=== PATIENT | female | born 1990 | race Caucasian/White ===

== ENCOUNTER 2016-11-14 11:02 | Outpatient (CLI) | payer MEDICAID ==
[2016-11-14 11:34] LABS: AMNISURE (ROM) POSITIVE (NEGATIVE)
[2016-11-14 11:34] LABS: APPEARANCE,URINE SLIGHTLY-CLOUDY; BILIRUBIN,URINE NEGATIVE (NEGATIVE); GLUCOSE, URINE NEGATIVE (NEGATIVE); KETONES,URINE NEGATIVE (NEGATIVE); LEUKOCYTE ESTERASE,URINE NEGATIVE (NEGATIVE); NITRITE,URINE NEGATIVE (NEGATIVE); PROTEIN,URINE NEGATIVE (NEGATIVE); URINE SPECIFIC GRAVITY 1.019; UROBILINOGEN,URINE NEGATIVE mg/dL (<2.0)
[2016-11-14 11:51] LABS: URINE BARBITURATES SCREEN NEGATIVE; URINE METHADONE SCREEN NEGATIVE; URINE OPIATES LOW NEGATIVE; URINE PHENCYCLIDINE SCREEN NEGATIVE
[2016-11-14] MEDS ORDERED: AMPICILLIN SOD INJ 1 GM VIAL ONE (11:56)
[2016-11-14] MEDS ORDERED: AZITHROMYCIN INJ 500 MG VIAL IV ONE ×2 (11:56→12:20)
[2016-11-14] MEDS ORDERED: BETAMET ACET/BETAMET NA INJ 6 MG/1 ML ONE ×2 (11:57→12:01)
--- NOTE | 2016-11-14 12:00 | L&D Flow Sheet ---
LD Flowsheet Datetime Report Generated by CPN: 11/14/2016 12:00 Datetime: 11/14/2016 11:37 Vital Signs NBP Sys/Katie/Mean (mmHg): 83 (QS system process) : 57 (QS system process) : 63 (QS system process)
[2016-11-14] MEDS ORDERED: AMPICILLIN SOD INJ 1 GM VIAL IV ONE (12:20)
--- NOTE | 2016-11-14 12:30 | PDOC TRANSFER SUMMARY ---
General Admission Date/PCP: KARAN BURLESON MD Admission Date: 11/14/16 Transfer Date: 11/14/16 Accepting Facility: [facility] Accepting Physician: Dr Delgado Resuscitation Status: Full Code - Transfer Diagnosis (1) Twin gestation in third trimester Is this a current diagnosis for this admission?: Yes (2) premature rupture of membranes Is this a current diagnosis for this admission?: Yes - Transfer Medications Home Medications: Glyburide [Diabeta 2.5 mg Tablet] 2.5 tab-cap PO BID 11/14/16 Levothyroxine Sodium [Synthroid 0.1 mg Tablet] 0.2 mg PO DAILY 11/14/16 - Allergies Allergies/Adverse Reactions: lamotrigine [From Lamictal] Allergy (Verified 08/26/15 14:42) Generalized rash abilify Allergy (Uncoded 11/14/16 12:15) - Diet/Activity Discharge Diet: As Tolerated, Regular Discharge Activity: Bedrest Hospital Course Hospital Course: 26yo A1 edc 01/25/17 ega 29+5 by edc and 8w sono presents c/o ROM 0900 this am. She reports mild cramping but no regular tightening. She reports no vaginal bleeding and has good movement. She had positive amnisure test on arrival. Physical Exam General appearance: PRESENT: no acute distress, cooperative Respiratory exam: PRESENT: clear to auscultation fredy Cardiovascular exam: PRESENT: RRR GI/Abdominal exam: PRESENT: normal bowel sounds, soft. ABSENT: distended, guarding, mass, organolmegaly, rebound, tenderness Extremities exam: PRESENT: full ROM. ABSENT: calf tenderness - FHT 130/140 with age appropriate tracing. toco irreg, clubbing, pedal edema Additional comments: fht 130/140 with age appropriate tracings. toco irreg. cx closed and long by sterile speculum exam Results Laboratory Results: 11/14/16 11:11 Urine Color YELLOW Urine Appearance SLIGHTLY-CLOUDY Urine pH 6.0 Ur Specific [place] 1.019 Urine Protein NEGATIVE Urine Glucose (UA) NEGATIVE Urine Ketones NEGATIVE Urine Blood NEGATIVE Urine Nitrite NEGATIVE Ur Leukocyte Esterase NEGATIVE Urine WBC (Auto) 1 Urine RBC (Auto) 1 Plan Discharge Plan: Transfer to [facility]. Amp and zithromax given. betamethasone given. Magnesium sulfate for neuroprotection given Time Spent: Less than 30 Minutes
[2016-11-14] MEDS ORDERED: MAGNESIUM SULFATE 4 GM/100 ML RTUPB IV ONE ×2 (12:39→13:00)
[2016-11-14] MEDS ORDERED: MAGNESIUM SULFATE 500 ML IV PRN (12:40)
[2016-11-14] MEDS ORDERED: BETAMET ACET/BETAMET NA INJ 6 MG/1 ML IM ONE (13:00)
--- NOTE | 2016-11-14 14:00 | L&D Flow Sheet ---
LD Flowsheet Datetime Report Generated by CPN: 11/14/2016 14:00 Datetime: 11/14/2016 13:23 Patient Care Comments: Monitors removed. Transfer team assuming care. (Leticia Marhefka, RN) Datetime: 11/14/2016 13:16 Pulse: 108 (QS system process) SpO2 (%): 99 (QS system process) LaborFlag: OB Triage (QS system process) Datetime: 11/14/2016 13:13 Magnesium/Antihypertensives: Magnesium Sulfate IV (Gm/hr) @ 2 (Leticia Murdock, RN) Datetime: 11/14/2016 13:11 Pulse: 105 (QS system process) SpO2 (%): 100 (QS system process) LaborFlag: OB Triage (QS system process) Datetime: 11/14/2016 13:09 NBP Sys/Katie/Mean (mmHg): 108 (Leticia Murdock RN) : 64 (Leticia Murdock RN) Pulse: 84 (Leticia Murdock RN) Respirations: 16 (Leticia Murdock, RN) Temperature (F): 98.6 (Leticia Murdock, RN) Temperature (C): 37.0 (QS system process) LaborFlag: OB Triage (QS system process) Datetime: 11/14/2016 13:06 Pulse: 117 (QS system process) SpO2 (%): 99 (QS system process) LaborFlag: OB Triage (QS system process) Datetime: 11/14/2016 13:01 Pulse: 99 (QS system process) SpO2 (%): 100 (QS system process) LaborFlag: OB Triage (QS system process) Datetime: 11/14/2016 13:00 I/O Interventions: [place] Cath Inserted (Leticia Murdock RN) Datetime: 11/14/2016 12:56 Pulse: 108 (QS system process) SpO2 (%): 99 (QS system process) LaborFlag: OB Triage (QS system process) Datetime: 11/14/2016 12:55 Monitor Mode: External; Palpation (Letty Felton RN) Frequency (min): irregular (Letty Felton, SAUL) Quality: Mild (Letty Felton RN) Duration Criteria: Less than Two 120 Second Contractions (Letty Felton RN) Pattern: Normal: <= 5 Contractions in 10 Minutes (Letty Felton RN) Resting Tone (Palpate): Relaxed (Letty Felton RN) Monitor Mode: External US (Letty Felton RN) FHR Baseline Rate : 145 (Letty Felton RN) Variability: Moderate 6-25 bpm (Letty Baidy, RN) Accelerations: 10X10 (Letty Felton, RN) Decelerations: None (Letty Felton, RN) Monitor Mode: External US (Letty Felton RN) FHR Baseline Rate : 140 (Letty Felton RN) Variability: Moderate 6-25 bpm (Letty Felton, RN) Accelerations: 10X10 (Letty Felton, RN) Decelerations: None (Letty Felton, RN) Datetime: 11/14/2016 12:51 Pulse: 115 (QS system process) SpO2 (%): 100 (QS system process) LaborFlag: OB Triage (QS system process) Datetime: 11/14/2016 12:50 Magnesium/Antihypertensives: Magnesium Sulfate IV Loading (Gm) @ 4g (Nuris Emerson RN) Patient Care Comments: LR at 75ml/hr (Nuris Emerson RN) Datetime: 11/14/2016 12:46 Pulse: 114 (QS system process) SpO2 (%): 100 (QS system process) LaborFlag: OB Triage (QS system process) Datetime: 11/14/2016 12:41 Pulse: 108 (QS system process) SpO2 (%): 99 (QS system process) LaborFlag: OB Triage (QS system process) Datetime: 11/14/2016 12:36 Pulse: 103 (QS system process) SpO2 (%): 100 (QS system process) LaborFlag: OB Triage (QS system process) Datetime: 11/14/2016 12:29 Pulse: 78 (Leticia Mariselaka, RN) Respirations: 17 (Leticia Murdock, RN) LaborFlag: OB Triage (QS system process) Datetime: 11/14/2016 12:25 Monitor Mode: External; Palpation (Letty Felton RN) Frequency (min): irregular (Letty Felton RN) Quality: Mild (Letty Felton RN) Duration Criteria: Less than Two 120 Second Contractions (Letty Felton RN) Pattern: Normal: <= 5 Contractions in 10 Minutes (Letty Felton RN) Resting Tone (Palpate): Relaxed (Letty Felton RN) Monitor Mode: External US (Letty Felton, RN) FHR Baseline Rate : 145 (Letty Felton, RN) Variability: Moderate 6-25 bpm (Letty Felton, RN) Accelerations: 10X10 (Letty Felton, RN) Decelerations: None (Letty Felton, RN) Monitor Mode: External US (Letty Felton, RN) FHR Baseline Rate : 140 (Letty Felton, RN) Variability: Moderate 6-25 bpm (Letty Felton, RN) Accelerations: 10X10 (Letty Felton, RN) Decelerations: None (Letty Baidy, RN) Antibiotics: Ampicillin IV 1 Gm (Leticia Murdock, RN) Datetime: 11/14/2016 12:13 Bedside Blood Glucose: 80 (QS system process) LaborFlag: OB Triage (QS system process) Datetime: 11/14/2016 12:12 NBP Sys/Katie/Mean (mmHg): 110 (Leticia Murdock RN) : 88 (Leticia Murdock RN) Vital Sign Comments: manual blood pressure (Leticia Murdock RN) LaborFlag: OB Triage (QS system process) Datetime: 11/14/2016 12:04 IV/Blood Work: IV Started; IV Bolus Started (Leticia Murdock RN)
== END 2016-11-14 13:30 | disposition short-term general hospital (02) ==
LOC: LC 11:02
PROVIDERS: ATTEND Obstetrics & Gynecology
PROC: 4A1HXCZ Monitoring of Products of Conception, Cardiac Rate, External Approach (ICD-10-PCS; principal; 2016-11-14)
DX: O42.913 Preterm premature rupture of membranes, unspecified as to length of time between rupture and onset of labor, third trimester (principal); O30.033 Twin pregnancy, monochorionic/diamniotic, third trimester; Z3A.29 29 weeks gestation of pregnancy; Z88.8 Allergy status to other drugs, medicaments and biological substances
CPT/HCPCS: 59899; 94760; 84112; 82962; 81001; 80307; J3475; J0290; J0702; J0456

== ENCOUNTER → 2017-06-07 | Outpatient (CLI) | payer MEDICAID ==
--- NOTE | 2017-06-07 15:16 | RADIOLOGY REPORT (SQ) ---
EXAM DESCRIPTION: U/S OB 14+ TRNABD 1GES W/O DOP COMPLETED DATE/TIME: 06/07/2017 2:33 pm REASON FOR STUDY: ENCOUNTER FOR SUPERVISION OF OTHER NORMAL , FIRST TRIMESTER Z34.81 ENCOU NTER FOR SUPRVSN OF NORMAL , FIRST TRIM COMPARISON: None TECHNIQUE: Static and Dynamic grayscale imaging performed of gravid uterus using transabdominal appr oach. Additional selected color Doppler and spectral images recorded. All stored on PACS. LIMITATIONS: None. FINDINGS: EGA: 14 weeks 1 day. ORLIN: 12/05/2017 EFW: Not calculated. Grams PERCENTILE: Not applicable. CAROL: Adequate amount. PLACENTA: Posterior GRADE: I PRESENTATION: Transverse. ANATOMY: HEART RATE: 158 beats per minute. FOUR CHAMBER HEART: Not visualized THREE VESSEL CORD: Not visualized CORD INSERTION: Not visualized KIDNEYS AND BLADDER: Not visualized STOMACH: Visualized. Appears normal. SPINE: Not visualized BRAIN AND LATERAL VENTRICLES: Not visualized OTHER: Upper and lower extremities are unremarkable. MATERNAL ADNEXA: Maternal ovaries not visualized. CERVICAL LENGTH: 2.4 cm Closed. OTHER: No other significant finding. IMPRESSION: A limited examination shows a live intrauterine gestation of 14 weeks 1 day with estimat ed date of delivery of 12/05/2017. Trimester of : Second trimester - 13 weeks 1 day to 27 weeks 6 days. TECHNICAL DOCUMENTATION: JOB ID: [id number] [employer]- All Rights Reserved
== END ==
LOC: RAD 13:35
PROVIDERS: ATTEND Nurse Practitioner Women's Health
DX: Z34.81 Encounter for supervision of other normal pregnancy, first trimester (principal)
CPT/HCPCS: 76805

== ENCOUNTER 2017-11-30 05:02 | Inpatient (IN) | payer MEDICAID ==
[2017-11-29 12:27] LABS: ABSOLUTE EOSINOPHILS # (AUTO) 0.1 10^3/uL (0.0-0.6); ABSOLUTE LYMPHOCYTES (AUTO) 2.3 10^3/uL (0.5-4.7); ABSOLUTE MONOCYTES (AUTO) 0.5 10^3/uL (0.1-1.4); BASOPHILS % (AUTO) 0.3 % (0-2); EOSINOPHILS % (AUTO) 0.8 % (0-6); HEMATOCRIT 30.4 % (36.0-47.0); HEMOGLOBIN 9.9 g/dL (12.0-15.5); LYMPHOCYTES % (AUTO) 17.8 % (13-45); MEAN CORPUSCULAR HEMOGLOBIN 27.3 pg (27.0-33.4); MEAN CORPUSCULAR HGB CONC 32.5 g/dL (32.0-36.0); MEAN CORPUSCULAR VOLUME 84 fl (80-97); MONOCYTES % (AUTO) 3.9 % (3-13); PLATELET COUNT 146 10^3/uL (150-450); RED BLOOD COUNT 3.62 10^6/uL (3.72-5.28); RED CELL DISTRIBUTION WIDTH 16.9 % (11.5-14.0); SEGMENTED NEUTROPHILS % (AUTO) 77.2 % (42-78); TOTAL CELLS COUNTED % (AUTO) 100 %; WHITE BLOOD COUNT 12.9 10^3/uL (4.0-10.5)
[2017-11-29 12:39] LABS: APPEARANCE,URINE SLIGHTLY-CLOUDY; BILIRUBIN,URINE NEGATIVE (NEGATIVE); COLOR,URINE YELLOW; GLUCOSE, URINE NEGATIVE (NEGATIVE); KETONES,URINE NEGATIVE (NEGATIVE); LEUKOCYTE ESTERASE,URINE TRACE (NEGATIVE); NITRITE,URINE NEGATIVE (NEGATIVE); PROTEIN,URINE NEGATIVE (NEGATIVE); UROBILINOGEN,URINE NEGATIVE mg/dL (<2.0)
[2017-11-29 12:50] LABS: URINE AMPHETAMINES SCREEN NEGATIVE; URINE BARBITURATES SCREEN NEGATIVE; URINE BENZODIAZEPINES SCREEN NEGATIVE; URINE COCAINE SCREEN NEGATIVE; URINE METHADONE SCREEN NEGATIVE; URINE PHENCYCLIDINE SCREEN NEGATIVE
[2017-11-29 14:12] LABS: URINE MARIJUANA (THC) SCREEN UNCONFIRMED POSITIVE
[~2017-11-30 05:02] MED LIST: AZITHROMYCIN 500 MG in DEXTROSE 5%-WATER 250 ML IV PRN; CEFAZOLIN 1 GM/D5W RTU 1 GM/50 ML RTUPB IV PRN; LACTATED RINGERS 1000 ML IV PRN; LIDOCAINE 0.5% INJ-PF (5 MG/ML) 50 ML SDV SUBCUT PRN; RINGERS SOLUTION,LACTATED 1,000 ML IV PRN
[2017-11-30] MEDS ORDERED: MIDAZOLAM 2 MG/2 ML INJ ONE (07:32)
[2017-11-30] MEDS ORDERED: EPHEDRINE SULFATE INJ 50 MG/1 ML AMPULE ONE (07:32)
[2017-11-30] MEDS ORDERED: ACETAMINOPHEN 100 ML IV ONE (07:33)
[2017-11-30] MEDS ORDERED: OXYTOCIN/NORMAL SALINE 20 UNIT/1,000 ML RTUINJ ONE ×2 (07:33→09:15)
[2017-11-30] MEDS ORDERED: MEPERIDINE HCL/PF INJ 25 MG/1 ML DISP.SYRIN IV PRN ×2 (08:03→09:15)
[2017-11-30] MEDS ORDERED: FENTANYL CITRATE INJ/PF 100 MCG/2 ML AMPUL IV PRN ×6 (08:03→09:15)
[2017-11-30] MEDS ORDERED: PROMETHAZINE HCL INJ 25 MG/1 ML VIAL IV PRN ×4 (08:03→09:15)
[2017-11-30] MEDS ORDERED: OXYCODONE-ACETAMINOPHEN 5-325 MG TABLET PO PRN ×5 (08:03→10:00)
[2017-11-30] MEDS ORDERED: DIPHENHYDRAMINE HCL 50 MG/ML VIAL IV PRN ×2 (08:03→09:15)
[2017-11-30] MEDS ORDERED: HYDROMORPHONE HCL INJ/PF 2 MG/ML AMPULE ONE (09:35)
--- NOTE | 2017-11-30 09:35 | OPERATIVE REPORT E ---
Operative Report NAME: ISRAEL DAILEY : 1990 AGE: 27Y DATE OF SURGERY: 11/30/2017 ROOM: 212 PREOPERATIVE DIAGNOSES: 1. Intrauterine at term. 2. Prior section. 3. Desire for sterilization. POSTOPERATIVE DIAGNOSES: 1. Intrauterine at term. 2. Prior section. 3. Desire for sterilization. OPERATION: Repeat low transverse , delivery of a viable male, Apgars of 9 and 9, 6 pounds 12 ounces. The other is a bilateral tubal occlusion using Filshie clips. SURGEON: Sarabjit HURST M.D. ESTIMATED BLOOD LOSS: Less than 600 mL. ANESTHESIA: Spinal. PROCEDURE: The patient was placed in a supine position and rolled on the right side, prepped, draped, sterile fashion. A Pfannenstiel incision was made through the existing *------* scar. The incision extended through the subcutaneous tissue and fascia with sharp dissection. Fascia was sharply divided. The rectus muscles were sharply divided. The parietal peritoneum was entered with sharp dissection. Uterus nicked in the midline and extended bilaterally. The was then delivered through the uteroabdominal incision. Nose and mouth suctioned with a bulb syringe. Cord was clamped and the infant was passed from the table. Placenta was manually extracted, and the uterus closed in 2 layers using 0 Vicryl, the first with a running stitch and the second with a Lembert stitch imbricating the first layer. There was bleeding noted in several areas of the uterine incision, and these were controlled with [id number] sutures of 0 Vicryl. The right fallopian tube was then occluded in the proximal portion using Filshie clips. The *------* prior to and after application. The procedure was repeated on the left, and the fascia was then closed with 0 Vicryl, and skin was closed with running subcutaneous 3-0 Vicryl. The patient's urine was clear throughout the procedure. She was taken to recovery room in good condition. The went to the nursery in good condition. DICTATING PHYSICIAN: Sarabjit HURST M.D. [id number] PHY#: [id number] ID: [id number] JOB#: [id number] ACCT: [id number] cc:Sarabjit HURST M.D. >
[2017-11-30] MEDS ORDERED: OXYTOCIN/NORMAL SALINE 20 UNIT/1,000 ML RTUINJ INJ PRN (09:40)
[2017-11-30] MEDS ORDERED: DEXTROSE 5%-LACTATED RINGERS 1,000 ML IV PRN (09:44)
[2017-11-30] MEDS ORDERED: ACETAMINOPHEN 325 MG TABLET PO PRN (10:00)
[2017-11-30] MEDS ORDERED: MEASLES,MUMPS&RUBELLA VACC/PF 0.5 ML VIAL SUBCUT PRN (10:00)
[2017-11-30] MEDS: PRENATAL VITAMIN W DHA CAPSULE PO SCH (10:00)
[2017-11-30] MEDS ORDERED: HYDROMORPHONE HCL INJ/PF 2 MG/ML AMPULE IV PRN (10:00)
[2017-11-30] MEDS ORDERED: SIMETHICONE 80 MG TAB.CHEW PO PRN (10:00)
[2017-11-30] MEDS: DOCUSATE SODIUM 100 MG CAPSULE PO SCH ×2 (10:00→18:08)
[2017-11-30] MEDS ORDERED: RINGERS SOLUTION,LACTATED 1,000 ML IV SCH (10:00)
[2017-11-30] MEDS ORDERED: PROMETHAZINE HCL INJ 25 MG/1 ML VIAL IM PRN (10:00)
[2017-11-30] MEDS ORDERED: DIPH/PERTUSS(ACELL)/TETANUS VAC/PF 0.5 ML SYR (>=10YO) IM PRN (10:00)
[2017-11-30] MEDS: OXYCODONE-ACETAMINOPHEN 5-325 MG TABLET PO PRN ×3 (10:26→22:15)
[2017-11-30] MEDS ORDERED: OXYCODONE-ACETAMINOPHEN 5-325 MG TABLET ONE (10:26)
[2017-11-30] MEDS ORDERED: ONDANSETRON HCL INJ/PF 4 MG/2 ML SDV ONE (10:58)
[2017-11-30] MEDS: IBUPROFEN 800 MG TABLET PO SCH ×3 (12:28→23:49)
[2017-12-01] MEDS: OXYCODONE-ACETAMINOPHEN 5-325 MG TABLET PO PRN ×3 (02:35→17:53)
[2017-12-01] MEDS: IBUPROFEN 800 MG TABLET PO SCH ×4 (06:02→23:26)
[2017-12-01 07:02] LABS: HEMOGLOBIN 8.5 g/dL (12.0-15.5); MEAN CORPUSCULAR HEMOGLOBIN 27.4 pg (27.0-33.4); MEAN CORPUSCULAR HGB CONC 32.6 g/dL (32.0-36.0); MEAN CORPUSCULAR VOLUME 84 fl (80-97); PLATELET COUNT 137 10^3/uL (150-450); RED CELL DISTRIBUTION WIDTH 16.9 % (11.5-14.0)
[2017-12-01] MEDS: DOCUSATE SODIUM 100 MG CAPSULE PO SCH ×2 (10:38→17:45)
[2017-12-01] MEDS: PRENATAL VITAMIN W DHA CAPSULE PO SCH (10:38)
--- NOTE | 2017-12-01 10:49 | PDOC PROGRESS REPORT ---
Subjective-OB Progress Note for:: 12/01/17 Subjective: well, tolerating diet, passing gas, pain controlled with current meds. denies needs Physical Exam (OB) Vital Signs: Temp Pulse Resp BP Pulse Ox 98.1 F 70 18 111/70 99 12/01/17 08:17 12/01/17 08:17 12/01/17 08:17 12/01/17 08:17 12/01/17 08:17 Intake & Output 11/30/17 12/01/17 12/02/17 06:59 06:59 06:59 Intake Total 2391 Output Total 600 1500 Balance -600 891 Weight 87.997 kg - Dressing Removed: Yes Incision: Dressing, Well Approximated - Abdomen Description: Soft, Round Hernia Present: No Fundal Description: Firm, Midline Fundal Height: u/u - u/2 - Abdominal Inspection: Normal - Extremities Lower extremities: Moris's sign - neg Calf: Normal, Nontender Objective-Diagnostic Laboratory: 12/01/17 06:46 12/01/17 06:46 WBC 13.0 H RBC 3.10 L Hgb 8.5 L Hct 26.0 L MCV 84 MCH 27.4 MCHC 32.6 RDW 16.9 H Plt Count 137 L Assessment and Plan(PN) - Assessment and Plan (1) delivery delivered Is this a current diagnosis for this admission?: Yes - Time Spent with Patient Time with patient: Less than 15 minutes - Disposition Anticipated Discharge: Home Within: within 24 hours
[2017-12-02] MEDS: OXYCODONE-ACETAMINOPHEN 5-325 MG TABLET PO PRN ×2 (00:56→10:41)
[2017-12-02] MEDS: IBUPROFEN 800 MG TABLET PO SCH (05:11)
[2017-12-02] MEDS: PRENATAL VITAMIN W DHA CAPSULE PO SCH (10:39)
[2017-12-02] MEDS: DOCUSATE SODIUM 100 MG CAPSULE PO SCH (10:39)
--- NOTE | 2017-12-02 13:00 | PDOC PROGRESS REPORT ---
Subjective-OB Progress Note for:: 12/02/17 Subjective: pt has no complaints Physical Exam (OB) Vital Signs: Temp Pulse Resp BP Pulse Ox 98.5 F 83 16 120/82 97 12/02/17 07:54 12/02/17 07:54 12/02/17 07:54 12/02/17 07:54 12/02/17 07:54 Intake & Output 12/01/17 12/02/17 12/03/17 06:59 06:59 06:59 Intake Total 2391 1720 Output Total 1500 Balance 891 1720 - PIH/Pre-Eclampsia Headache: Absent Epigastric Pain: No Visual Changes: No - Dressing Removed: No Incision: Dressing, Well Approximated Closure Type: Sutures - Bilateral Tubal Ligation Dressing Removed: No Site: Dressing, Well Approximated - Lochia Lochia Amount: Scant < 10 ml Lochia Color: Rubra/Red - Abdomen Description: Soft Hernia Present: No Fundal Description: Firm Fundal Height: u/u - u/2 - Respiratory Breath sounds: Clear - Extremities Calf: Normal Objective-Diagnostic Laboratory: 12/01/17 06:46 Assessment and Plan(PN) - Time Spent with Patient Time with patient: Less than 15 minutes Medications reviewed and adjusted accordingly: Yes - Disposition Anticipated Discharge: Home
--- NOTE | 2017-12-02 13:04 | PDOC DISCHARGE SUMMARY ---
Final Diagnosis Discharge Date: 12/02/17 - Final Diagnosis (1) Multiparity Is this a current diagnosis for this admission?: Yes (2) delivery delivered Is this a current diagnosis for this admission?: Yes Discharge Data - Discharge Medication Prescriptions: Oxycodone HCl/Acetaminophen [Percocet 5-325 mg Tablet] 2 tab PO Q4HP PRN #20 tablet PRN Reason: Ibuprofen [Motrin 800 mg Tablet] 800 mg PO Q6 #90 tablet Home Medications: Levothyroxine Sodium [Synthroid 0.1 mg Tablet] 0.2 mg PO DAILY 11/14/16 Ferrous Sulfate 325 mg PO DAILY 11/29/17 Vit,Calc78/Iron/Folic [Prenatabs FA Tablet] 1 each PO DAILY 11/29/17 Ibuprofen [Motrin 800 mg Tablet] 800 mg PO Q6 #90 tablet 12/02/17 Oxycodone HCl/Acetaminophen [Percocet 5-325 mg Tablet] 2 tab PO Q4HP PRN #20 tablet 12/02/17 Reason(s) for Admission: Ceasarean Section-Repeat, Tubal Ligation Intrapartum Procedure(s): : Low Cervical, Transverse, Tubal Ligation - Diagnosis Test Laboratory: Temp Pulse Resp BP Pulse Ox 98.5 F 83 16 120/82 97 12/02/17 07:54 12/02/17 07:54 12/02/17 07:54 12/02/17 07:54 12/02/17 07:54 11/29/17 11/29/17 12/01/17 11:30 11:40 06:46 RBC 3.62 L 3.10 L Hgb 9.9 L 8.5 L Hct 30.4 L 26.0 L Urine Opiates Screen NEGATIVE - Discharge information/Instructions Discharge Activity: Activity As Tolerated, Balance Activity w/Rest, Energy Conservation, No Lifting/Push/Pulling, Pelvic Rest, No tub bath, Walk Frequently Discharge Diet: As Tolerated Disposition: HOME, SELF-CARE Follow up with: [facility] in: 1
[2017-12-02 13:13] VITALS: BP 117/71
== END 2017-12-02 13:50 | disposition home or self-care (01) | DRG 766 ==
LOC: UNDOADMIN 05:02 → 2S 05:02 → 2N 05:02
PROVIDERS: ADMIT Obstetrics & Gynecology Gynecology; ATTEND Obstetrics & Gynecology Gynecology
PROC: 0UL70CZ Occlusion of Bilateral Fallopian Tubes with Extraluminal Device, Open Approach (ICD-10-PCS; 2017-11-30)
PROC: 4A1HXCZ Monitoring of Products of Conception, Cardiac Rate, External Approach (ICD-10-PCS; 2017-11-30)
PROC: 10D00Z1 Extraction of Products of Conception, Low, Open Approach (ICD-10-PCS; principal; 2017-11-30 07:45)
DX: O34.211 Maternal care for low transverse scar from previous cesarean delivery (principal); E66.9 Obesity, unspecified; E07.9 Disorder of thyroid, unspecified; O99.214 Obesity complicating childbirth; O99.334 Smoking (tobacco) complicating childbirth; F17.200 Nicotine dependence, unspecified, uncomplicated; O99.284 Endocrine, nutritional and metabolic diseases complicating childbirth; Z30.2 Encounter for sterilization; Z79.899 Other long term (current) drug therapy; Z68.37 Body mass index [BMI] 37.0-37.9, adult; Z37.0 Single live birth
CPT/HCPCS: 1961; 36415; 59025; 80307; 81001; 85025; 85027; 86850; 86900; 86901; J0131; J0456; J1170; J2250; J2405; J2590; J3490; J7060; J7120